=== PATIENT | male | born 1990 | race African-American/Black ===

== ENCOUNTER 2018-09-08 12:41 | Emergency (ER) | payer SELFPAY ==
[2018-09-08 12:48] VITALS: BP 137/83; PULSE 88; TEMP 97.8; BMI 31.6
--- NOTE | 2018-09-08 14:18 | PDOC ---
History of Present Illness - General Chief Complaint: Back Pain Stated Complaint: LOWER BACK PAIN Time Seen by Provider: 09/08/18 13:32 Past History - Past Medical History Allergies/Adverse Reactions: Allergies Allergy/AdvReac Type Severity Reaction Status Date / Time No Known Allergies Allergy Verified 09/08/18 12:43 Home Medications: Ambulatory Orders Methocarbamol [Robaxin -] 500 mg PO HS #14 tablet 09/08/18 Methylprednisolone [Medrol Dose Eitan] 4 mg PO ASDIR #21 tablet 09/08/18 COPD: No - Suicide/Smoking/Psychosocial Hx Smoking History: Never smoked Have you smoked in the past 12 months: No Information on smoking cessation initiated: No Hx Alcohol Use: No Drug/Substance Use Hx: No *Physical Exam - Vital Signs Last Vital Signs Temp Pulse Resp BP Pulse Ox 97.8 F 88 15 137/83 100 09/08/18 12:43 09/08/18 12:43 09/08/18 12:43 09/08/18 12:43 09/08/18 12:43 Moderate Sedation - Procedure Monitoring Vital Signs: Procedure Monitoring Vital Signs Temperature 97.8 F 09/08/18 12:43 Pulse Rate 88 09/08/18 12:43 Respiratory Rate 15 09/08/18 12:43 Blood Pressure 137/83 09/08/18 12:43 O2 Sat by Pulse Oximetry (%) 100 09/08/18 12:43 *DC/Admit/Observation/Transfer Diagnosis at time of Disposition: Back pain Qualifiers: Back pain location: low back pain Chronicity: acute Back pain laterality: bilateral Sciatica presence: with sciatica Sciatica laterality: bilateral sciatica Qualified Code(s): M54.42 - Lumbago with sciatica, left side; M54.41 - Lumbago with sciatica, right side - Discharge Dispostion Disposition: HOME Condition at time of disposition: Stable Decision to Admit order: No - Referrals Referrals: Enmanuel Ureña MD [Staff Physician] - - Patient Instructions Printed Discharge Instructions: DI for Low Back Pain Additional Instructions: You have low back pain due to a muscle spasm. Please take the prednisone pack as directed. You were also prescribed Robaxin. Please take the medication before you go to bed. Do not drive after taking this medication as it may make you sleepy. You may use warm compresses on your back to help with her symptoms. Please follow-up with your primary care doctor. If your symptoms do not resolve in 3-5 days, follow-up with orthopedics. A referral has been provided for you. Return to the emergency department if you have worsening back pain, bladder or bowel incontinence, numbness and tingling in her legs, changes in the way you walk, or any new or worsening symptoms. - Post Discharge Activity Forms/Work/School Notes: Back to Work
[2018-09-08] MEDS ORDERED: KETOROLAC TROMETHAMINE 60 MG/2 ML VIAL IM ONE (14:19)
[2018-09-08] MEDS ORDERED: KETOROLAC TROMETHAMINE 60 MG/2 ML VIAL ONE (14:40)
== END 2018-09-08 16:11 | disposition home or self-care (01) ==
LOC: JERFT 12:41
PROC: 3E0233Z Introduction of Anti-inflammatory into Muscle, Percutaneous Approach (ICD-10-PCS; principal; 2018-09-08)
DX: M54.41 Lumbago with sciatica, right side (principal); M54.42 Lumbago with sciatica, left side
CPT/HCPCS: 72100-TC-FY; 99281-25